=== PATIENT | male | born 1980 | race Caucasian/White ===

== ENCOUNTER → 2017-09-03 | Emergency (ER) | payer BC ==
[~2017-09-03] VITALS: Ht 180.3 cm; Wt 77.0 kg
[~2017-09-03] MED LIST: ACET-3067 PO; CYCL-1 PO; NO HOME MEDS; ONDA4TAB59 PO
[2017-09-03 14:05] VITALS: BP 127/71
== END | disposition home or self-care (01) ==
LOC: ER 14:05
DX: S93.402A Sprain of unspecified ligament of left ankle, initial encounter (principal); G89.29 Other chronic pain; Z79.899 Other long term (current) drug therapy; W18.39XA Other fall on same level, initial encounter; Y93.64 Activity, baseball; Y92.89 Other specified places as the place of occurrence of the external cause; Y99.8 Other external cause status
CPT/HCPCS: 73610; 99284

== ENCOUNTER 2019-10-09 23:33 | Emergency (ER) | payer BC ==
[~2019-10-09] VITALS: Ht 180.3 cm; Wt 72.5 kg
[~2019-10-09 23:33] MED LIST changes: -ACET-3067 PO
[2019-10-09 23:37] VITALS: BP 135/71
[2019-10-09 23:53] LABS: BASOPHILS # (AUTO) 0.1 X10'3 (0-0.2); BASOPHILS % (AUTO) 0.6 % (0-1); EOSINOPHILS # (AUTO) 0.5 X10'3 (0-0.9); EOSINOPHILS % (AUTO) 4.7 % (0-6); HEMATOCRIT 42.4 % (42.0-52.0); HEMOGLOBIN 14.2 g/dl (14.0-17.9); LYMPHOCYTES # (AUTO) 1.9 X10'3 (1.1-4.8); LYMPHOCYTES % (AUTO) 17.9 % (21-51); MEAN CORPUSCULAR HEMOGLOBIN 30.6 PG (27.0-31.0); MEAN CORPUSCULAR HGB CONC 33.5 g/dL (33.0-36.5); MEAN CORPUSCULAR VOLUME 91.3 FL (78-98); MEAN PLATELET VOLUME 9.4 FL (7.4-10.4); MONOCYTES # (AUTO) 0.7 X10'3 (0-0.9); MONOCYTES % (AUTO) 6.8 % (2-12); NEUTROPHILS # (AUTO) 7.5 X10'3 (1.8-7.7); PLATELET COUNT 187 X10'3 (140-440); RED BLOOD COUNT 4.65 X10'6 (4.70-6.10); RED CELL DISTRIBUTION WIDTH 12.7 % (11.5-14.5); WHITE BLOOD COUNT 10.6 X10'3 (4.5-11.0)
[2019-10-10] MEDS ORDERED: CEPH-572 PO (00:39)
[2019-10-10] MEDS ORDERED: SULF1TAB49 PO (00:39)
== END 2019-10-10 01:00 | disposition home or self-care (01) ==
LOC: ER 23:33
DX: L02.211 Cutaneous abscess of abdominal wall (principal); L03.311 Cellulitis of abdominal wall; L73.8 Other specified follicular disorders; G89.29 Other chronic pain; Z79.2 Long term (current) use of antibiotics
CPT/HCPCS: 36415; 80053; 83690; 85025; 87070; 87077; 87186; 99283